=== PATIENT | male | born 1980 | race Caucasian/White ===

== ENCOUNTER 2021-07-14 21:03 | Emergency (ER) | payer OTHER ==
[2021-07-14 23:54] LABS: HEMOGLOBIN 13.4 gm/dl (14.0-17.5); RED BLOOD COUNT 4.41 M/UL (4.20-5.50); WHITE BLOOD COUNT 5.9 K/UL (4.5-11.0)
[2021-07-15 00:14] LABS: BUN/CREATININE RATIO 9 (0-10)
== END 2021-07-15 02:07 | disposition home or self-care (01) ==
LOC: ER1 21:03
PROVIDERS: Family Medicine
DX: R20.2 Paresthesia of skin (principal); I10 Essential (primary) hypertension; Z79.899 Other long term (current) drug therapy
CPT/HCPCS: 70450; 80053; 81001; 82550; 82553; 83735; 83880; 84484; 85025; 85379; 85610; 93005; 99285